=== PATIENT | female | born 1945 | race Two or more races ===

== ENCOUNTER 2021-10-19 15:54 | Outpatient (CLI) | payer OTHER ==
[~2021-10-19 15:54] MED LIST: LIPITOR20 MG; NEURONTIN300 MG; TOPROL XL50 M1
== END 2021-10-19 16:00 | disposition home or self-care (01) ==
LOC: RAD 15:54
PROVIDERS: ATTEND Family Medicine
DX: R06.03 Acute respiratory distress (principal)

== ENCOUNTER 2023-07-25 15:47 | Emergency (ER) | payer OTHER ==
[~2023-07-25] VITALS: Ht 160 cm; Wt 71.2 kg
[2023-07-25 17:40] LABS: HEMATOCRIT 38.6 % (36.0-45.00); HEMOGLOBIN 12.8 g/dL (12.0-15.00); MEAN CORPUSCULAR HEMOGLOBIN 31.2 pg (27.00-32.0); MEAN CORPUSCULAR HGB CONC 33.2 g/dl (32.0-36.0); PLATELET COUNT 204 K/uL (150-450); RED BLOOD COUNT 4.11 M/uL (4.00-6.00); RED CELL DISTRIBUTION WIDTH 12.9 % (11.5-14.5)
[2023-07-25 18:01] LABS: PH,URINE 7.5 (5.0-8.0); URINE APPEARANCE Cloudy; URINE BACTERIA 22.6 uL (0.0-1933); URINE BILIRRUBIN Negative (NEGATIVE); URINE BLOOD Negative; URINE COLOR Yellow; URINE EPITHELIAL CELLS 3.3 uL (0.0-38.8); URINE GLUCOSE Negative (NEGATIVE); URINE LEUKOCYTE Negative; URINE NITRATE Negative; URINE PROTEIN Trace (NEGATIVE); URINE RBC 10.7 uL (0.0-20.8); URINE UROBILINOGEN 0.2 E.U./dl
[2023-07-25 18:05] LABS: ALBUMIN 3.4 gm/dL (3.4-5.0); BILIRUBIN TOTAL 0.48 mg/dL (0.3-1.2); CALCIUM 9.3 mg/dL (8.5-10.1); CREATININE SERUM 0.68 mg/dL (0.55-1.02); GFR 83.68; GLOBULINA 3.7 G/DL (2.4-3.5); POTASSIUM 4.13 mEq/L (3.5-5.1); TOTAL PROTEIN 7.1 gm/dL (6.4-8.2)
[2023-07-25] MEDS ORDERED: ONDANSETRON HCL4 MG PO (18:57)
[2023-07-25] MEDS ORDERED: PEPCID AC20 MG PO (18:57)
== END 2023-07-25 19:12 | disposition home or self-care (01) ==
LOC: ER
PROVIDERS: Nurse Practitioner Family
DX: K29.70 Gastritis, unspecified, without bleeding (principal); Z87.09 Personal history of other diseases of the respiratory system
CPT/HCPCS: 36415; 96365; 99284; J2405; J3490